=== PATIENT | female | born 1985 | race Caucasian/White ===

== ENCOUNTER 2018-04-06 13:45 | Emergency (ER) | payer BC ==
--- NOTE | 2018-04-06 15:04 | ER Document Report ---
ED Medical Screen (RME) - General Chief Complaint: Palpitations Stated Complaint: HEART RATE ISSUE Time Seen by Provider: 04/06/18 14:50 Notes: RAPID MEDICAL EVALUATION DISCLOSURE I have seen this patient as part of a Rapid Medical Evaluation and, if applicable, placed any initially appropriate orders. The patient will be seen and fully evaluated, including a full history and physical exam, by a provider ( in Main ED or Fast Track) when a room becomes available. 32-year-old female sent here from her primary care's office, Yaquelin Medel, for palpitations. The symptoms have been going on for about a week now. She is having intermittent palpitations, minimal shortness of breath, but no chest pain discomfort or tightness. She is currently on a keto diet but otherwise denies any excessive caffeine use, cocaine use, medication changes. She does have a history of thyroid "issues" but does not take any thyroid medications for this. At her primary care physician's office, they saw possible atrial fibrillation of which she does not have a prior diagnosis so they sent her here. EXAM CTAB RRR TRAVEL OUTSIDE OF THE [place] IN LAST 30 DAYS: No - Related Data Allergies/Adverse Reactions: No Known Allergies Allergy (Verified 04/06/18 13:47) Past Medical History - Social History Frequency of alcohol use: None Drug Abuse: None - Past Medical History Cardiac Medical History: Denies: Hx Coronary Artery Disease, Hx Heart Attack, Hx Hypertension Pulmonary Medical History: Denies: Hx Asthma, Hx Bronchitis, Hx COPD, Hx Pneumonia Neurological Medical History: Denies: Hx Cerebrovascular Accident, Hx Seizures Renal/ Medical History: Denies: Hx Peritoneal Dialysis GI Medical History: Reports: Hx Gastroesophageal Reflux Disease - Immunizations Hx Diphtheria, Pertussis, Tetanus Vaccination: Yes Physical Exam - Vital signs Vitals: Temp Pulse Resp BP Pulse Ox 98.7 F 77 18 122/75 98 04/06/18 14:02 04/06/18 14:02 04/06/18 14:02 04/06/18 14:02 04/06/18 14:02 Course - Vital Signs Vital signs: Temp Pulse Resp BP Pulse Ox 98.7 F 77 18 122/75 98 04/06/18 14:02 04/06/18 14:02 04/06/18 14:02 04/06/18 14:02 04/06/18 14:02
[2018-04-06 15:27] LABS: ABSOLUTE BASOPHILS # (AUTO) 0.1 10^3/uL (0.0-0.2); ABSOLUTE EOSINOPHILS # (AUTO) 0.1 10^3/uL (0.0-0.6); ABSOLUTE LYMPHOCYTES (AUTO) 2.6 10^3/uL (0.5-4.7); ABSOLUTE MONOCYTES (AUTO) 0.7 10^3/uL (0.1-1.4); ABSOLUTE NEUT (AUTO) 6.3 10^3/uL (1.7-8.2); BASOPHILS % (AUTO) 0.7 % (0-2); EOSINOPHILS % (AUTO) 1.5 % (0-6); HEMATOCRIT 43.3 % (36.0-47.0); HEMOGLOBIN 14.8 g/dL (12.0-15.5); LYMPHOCYTES % (AUTO) 26.6 % (13-45); MEAN CORPUSCULAR HEMOGLOBIN 30.4 pg (27.0-33.4); MEAN CORPUSCULAR HGB CONC 34.1 g/dL (32.0-36.0); MEAN CORPUSCULAR VOLUME 89 fl (80-97); MONOCYTES % (AUTO) 6.8 % (3-13); PLATELET COUNT 342 10^3/uL (150-450); RED BLOOD COUNT 4.86 10^6/uL (3.72-5.28); SEGMENTED NEUTROPHILS % (AUTO) 64.4 % (42-78); TOTAL CELLS COUNTED % (AUTO) 100 %; WHITE BLOOD COUNT 9.7 10^3/uL (4.0-10.5)
--- NOTE | 2018-04-06 15:32 | RADIOLOGY REPORT (SQ) ---
EXAM DESCRIPTION: CHEST 2 VIEWS COMPLETED DATE/TIME: 04/06/2018 3:19 pm REASON FOR STUDY: palpitations COMPARISON: None. EXAM PARAMETERS: NUMBER OF VIEWS: two views TECHNIQUE: Digital Frontal and Lateral radiographic views of the chest acquired. RADIATION DOSE: NA LIMITATIONS: none FINDINGS: LUNGS AND PLEURA: No opacities, masses or pneumothorax. No pleural effusion. MEDIASTINUM AND HILAR STRUCTURES: No masses or contour abnormalities. HEART AND VASCULAR STRUCTURES: Heart normal size. No evidence for failure. BONES: No acute findings. HARDWARE: None in the chest. OTHER: No other significant finding. IMPRESSION: NO ACUTE RADIOGRAPHIC FINDING IN THE CHEST. TECHNICAL DOCUMENTATION: JOB ID: [id number] [employer]- All Rights Reserved Reading location - IP/workstation name: [email or web address]
[2018-04-06 15:46] LABS: ANION GAP 10 (5-19); BLOOD UREA NITROGEN 12 mg/dL (7-20); CARBON DIOXIDE 24 mmol/L (22-30); CHLORIDE 107 mmol/L (98-107); GLUCOSE 79 mg/dL (75-110); PHOSPHORUS 3.5 mg/dL (2.5-4.5); POTASSIUM 4.2 mmol/L (3.6-5.0); SODIUM 140.5 mmol/L (137-145)
--- NOTE | 2018-04-06 18:22 | ER Document Report ---
ED General - General Chief Complaint: Palpitations Stated Complaint: HEART RATE ISSUE Time Seen by Provider: 04/06/18 14:50 Mode of Arrival: Ambulatory Information source: Patient TRAVEL OUTSIDE OF THE [place] IN LAST 30 DAYS: No - HPI Patient complains to provider of: palpitations-sent over from for possible a fib Onset: Other - weeks Onset/Duration: Intermittent Quality of pain: No pain Notes: Patient states she has palpitations for the past few weeks. She states that they are pretty much constant. She was seen at urgent care and sent here for possible A. fib. Patient has no cardiac history or family history of cardiac disease. She denies smoking, cocaine use, [id number] medications, stimulants besides a few cups of caffeinated beverages per day. She states she did have issues with her parathyroid in the past and they did extensive blood work on her and were watching her-No intervention.Patient is primary medical doctors [facility]. - Related Data Allergies/Adverse Reactions: No Known Allergies Allergy (Verified 04/06/18 13:47) Past Medical History - General Information source: Patient - Social History Smoking Status: Never Smoker Frequency of alcohol use: None Drug Abuse: None Family History: Reviewed & Not Pertinent Patient has suicidal ideation: No Patient has homicidal ideation: No - Past Medical History Cardiac Medical History: Reports: None Denies: Hx Coronary Artery Disease, Hx Heart Attack, Hx Hypertension Pulmonary Medical History: Reports: None Denies: Hx Asthma, Hx Bronchitis, Hx COPD, Hx Pneumonia EENT Medical History: Reports: None Neurological Medical History: Reports: None. Denies: Hx Cerebrovascular Accident, Hx Seizures Endocrine Medical History: Reports: Other - high calcium Renal/ Medical History: Reports: None. Denies: Hx Peritoneal Dialysis Malignancy Medical History: Reports: None GI Medical History: Reports: Hx Gastroesophageal Reflux Disease Musculoskeltal Medical History: Reports None Psychiatric Medical History: Reports: Hx Anxiety Past Surgical History: Reports: Other - right forearm laceration repair - Immunizations Hx Diphtheria, Pertussis, Tetanus Vaccination: Yes Review of Systems - Review of Systems Constitutional: No symptoms reported EENT: No symptoms reported Cardiovascular: See HPI, Palpitations. denies: Heart racing Respiratory: No symptoms reported Gastrointestinal: No symptoms reported Genitourinary: No symptoms reported Female Genitourinary: No symptoms reported Musculoskeletal: No symptoms reported Skin: No symptoms reported Hematologic/Lymphatic: No symptoms reported Neurological/Psychological: No symptoms reported Physical Exam - Vital signs Vitals: Temp Pulse Resp BP Pulse Ox 98.7 F 77 18 122/75 98 04/06/18 14:02 04/06/18 14:02 04/06/18 14:02 04/06/18 14:02 04/06/18 14:02 - Notes Notes: PHYSICAL EXAMINATION: GENERAL: Well-appearing, well-nourished and in no acute distress. HEAD: Atraumatic, normocephalic. EYES: Pupils equal round and reactive to light, extraocular movements intact, conjunctiva are normal. ENT: Nares patent, oropharynx clear without exudates. Moist mucous membranes. NECK: Normal range of motion, supple without lymphadenopathy LUNGS: Breath sounds clear to auscultation bilaterally and equal. No wheezes rales or rhonchi. HEART: Regular rate and rhythm without murmurs ABDOMEN: Soft, nontender, nondistended abdomen. No guarding, no rebound. No masses appreciated. Female : deferred Musculoskeletal: Normal range of motion, no pitting or edema. No cyanosis. NEUROLOGICAL: Cranial nerves grossly intact. Normal speech, normal gait. Normal sensory, motor exams PSYCH: Normal mood, normal affect. SKIN: Warm, Dry, normal turgor, no rashes or lesions noted. Course - Re-evaluation Re-evalutation: 04/06/18 18:21 Labs- All tests 24 hr 04/06/18 04/06/18 04/06/18 15:09 15:09 15:09 WBC 9.7 RBC 4.86 Hgb 14.8 Hct 43.3 MCV 89 MCH 30.4 MCHC 34.1 RDW 13.0 Plt Count 342 Seg Neutrophils % 64.4 Lymphocytes % 26.6 Monocytes % 6.8 Eosinophils % 1.5 Basophils % 0.7 Absolute Neutrophils 6.3 Absolute Lymphocytes 2.6 Absolute Monocytes 0.7 Absolute Eosinophils 0.1 Absolute Basophils 0.1 Sodium 140.5 Potassium 4.2 Chloride 107 Carbon Dioxide 24 Anion Gap 10 BUN 12 Creatinine 0.49 L Est GFR ( Amer) > 60 Est GFR (Non-Af Amer) > 60 Glucose 79 Calcium 11.0 H Phosphorus 3.5 Magnesium 2.0 Troponin I TSH 1.27 04/06/18 15:09 WBC RBC Hgb Hct MCV MCH MCHC RDW Plt Count Seg Neutrophils % Lymphocytes % Monocytes % Eosinophils % Basophils % Absolute Neutrophils Absolute Lymphocytes Absolute Monocytes Absolute Eosinophils Absolute Basophils Sodium Potassium Chloride Carbon Dioxide Anion Gap BUN Creatinine Est GFR ( Amer) Est GFR (Non-Af Amer) Glucose Calcium Phosphorus Magnesium Troponin I < 0.012 TSH 04/06/18 18:42 Repeat EKG shows sinus arrhythmia at a rate is 66 there is no atrial fibrillation. QTC is 411 [place] is 164ST elevations or depressions. No longer do Holter monitors in the emergency department. Patient will be referred to cardiology. She is to call her primary medical doctor tomorrow regarding her hypocalcemia and follow-up regarding that. 04/06/18 18:46 - Vital Signs Vital signs: Temp Pulse Resp BP Pulse Ox 98.7 F 77 18 122/75 98 04/06/18 14:02 04/06/18 14:02 04/06/18 14:02 04/06/18 14:02 04/06/18 14:02 - Laboratory Result Diagrams: 04/06/18 15:09 04/06/18 15:09 Laboratory results interpreted by me: 04/06/18 15:09 Creatinine 0.49 L Calcium 11.0 H - Diagnostic Test Radiology reviewed: Image reviewed, Reports reviewed - EKG Interpretation by Ri EKG shows normal: Sinus rhythm - 76 Discharge - Discharge Clinical Impression: Sinus arrhythmia seen on electrocardiogram, Sinus arrhythmia, Hypercalcemia Disposition: HOME, SELF-CARE Instructions: Palpitations (Irregular or Rapid Heartrate) ([facility]) Additional Instructions: Please follow-up with your primary medical doctor at [facility] Regarding your slightly elevated calcium level. Referrals: ALEXUS FISCHER MD [ACTIVE STAFF] - Follow up in 3-5 days (Please call cardiology for follow-up for your palpitations)
[2018-04-06 18:56] VITALS: BP 120/81
--- NOTE | 2018-04-06 20:12 | EKG REPORT ---
SEVERITY:- NORMAL ECG - SINUS RHYTHM : Confirmed by: Alisson Orozco 06-Apr-2018 20:11:37
--- NOTE | 2018-04-07 08:55 | EKG REPORT ---
SEVERITY:- OTHERWISE NORMAL ECG - SINUS RHYTHM ATRIAL PREMATURE COMPLEX : Confirmed by: Alisson Orozoc 07-Apr-2018 08:55:02
== END 2018-04-06 18:56 | disposition home or self-care (01) ==
LOC: ER 13:45
DX: I49.9 Cardiac arrhythmia, unspecified (principal); E83.52 Hypercalcemia
CPT/HCPCS: 36415; 71046; 80048; 83735; 84100; 84443; 84484; 85025; 93005; 93010; 99285